=== PATIENT | male | born 1985 | race Caucasian/White ===

== ENCOUNTER 2017-06-20 19:25 | Emergency (ER) | payer OTHER ==
[~2017-06-20] VITALS: Ht 175.3 cm; Wt 58.4 kg
[2017-06-20 19:29] VITALS: TEMP 36.7; Ht 175.3 cm; Wt 58.4 kg
[2017-06-20] MEDS ORDERED: IBUP-103 PO (19:47)
[2017-06-20] MEDS ORDERED: OXYCODONE HCL IR 5 MG TAB (IMMEDIATE RELEASE) PO STA (19:48)
[2017-06-20] MEDS ORDERED: OXYCODONE IR HOME PACK PO STA (19:48)
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
[2017-06-20] MEDS ORDERED: OXYC1TAB3 PO (20:37)
[2017-06-20 20:45] VITALS: BP 132/70; PULSE 78; O2SAT 100
== END 2017-06-20 20:45 | disposition home or self-care (01) ==
LOC: C.EDB 19:27 → C.EDD 20:45
DX: S62.502A Fracture of unspecified phalanx of left thumb, initial encounter for closed fracture (principal); W50.0XXA Accidental hit or strike by another person, initial encounter; F17.200 Nicotine dependence, unspecified, uncomplicated